=== PATIENT | female | born 1960 | race Caucasian/White ===

== ENCOUNTER 2023-05-29 15:42 | Outpatient (CLI) | payer BC ==
[~2023-05-29 15:42] MED LIST: BENA20TA82 PO; FLUT16SP11 BOTHNARES; FLUT1DIS20 INH; LEVO50TA8 PO; METO-539 PO; PANT-47 PO; TRIA1CAP88 PO; iohexol 350MG/ML 100ml bottle IV ONE
== END 2023-05-29 23:59 | disposition home or self-care (01) ==
LOC: RAD 15:42
PROVIDERS: ATTEND Nurse Practitioner
DX: I51.7 Cardiomegaly (principal); J90 Pleural effusion, not elsewhere classified
CPT/HCPCS: 71275; J3490; Q9967

== ENCOUNTER 2024-10-09 08:07 | Inpatient (IN) | payer BC ==
[~2024-10-09] VITALS: Ht 160 cm; Wt 113.6 kg
[~2024-10-09 08:07] MED LIST changes: -iohexol 350MG/ML 100ml bottle IV ONE
[2024-10-09] MEDS ORDERED: ATOR20TA66 PO (08:39)
[2024-10-09] MEDS ORDERED: GLIM2TAB6 PO (08:39)
[2024-10-09] MEDS ORDERED: DAPA10TA PO (08:39)
--- NOTE | 2024-10-09 09:07 | Physician Documentation ---
History of Present Illness Chief Complaint: Abdominal Pain Stated Complaint: ABD PAIN Time Seen by MD: 08:47 HPI Female presents to the ED with a complaint of stabbing intermittent abdominal pain since Saturday. She states that throughout her life she has had spells or attacks like this before they usually resolve after she has several bouts of diarrhea during this episode she states she has developed diarrhea along with bloody diarrhea Denies any fevers reports the pain comes in waves Day of Onset: Oct 09, 2024 Medication Reconciliation Allergies: Coded Allergies: No Known Drug Allergies (Verified Allergy, Unknown, 08/17/20) hydrocodone (Verified Adverse Reaction, Unknown, EXTREME SICK TO STOMACH, 10/09/24) Scheduled Benazepril Hcl* (Lotensin*), 20 MG PO BID, (Reported) Dapagliflozin Propanediol (Farxiga), 1 TAB PO DAILY, (Reported) Fluticasone Propionate (Fluticasone Propionate), 2 SPRAYS BOTHNARES DAILY, (Reported) Fluticasone/Salmeterol (Advair 250-50 Diskus), 1 PUFFS INH Q12H, (Reported) Glimepiride (Glimepiride), 1 TAB PO BID, (Reported) Levothyroxine Sodium (Levothyroxine Sodium), 1 TAB PO DAILY, (Reported) Metoprolol Succinate* (Toprol Xl*), 1 TAB PO DAILY, (Reported) Pantoprazole Sodium (PROTONIX tablet), 1 TAB PO BID, (Reported) Triamterene/Hydrochlorothiazid (Triamterene-Hctz 37.5-25 Mg Cp), 1 CAP PO DAILY, (Reported) Miscellaneous Medications Atorvastatin Calcium (Atorvastatin Calcium), 1 TAB PO, (Reported) Review of Systems All Other Systems at this time: Reviewed and Negative ROS As stated above in the HPI, otherwise all systems are reviewed and negative. Physical Exam Vital Signs: Temperature: 98.4, Source: Temporal, Heart Rate: 82, Respiratory Rate: 16, BP: 111/63, Pulse Oximetry: 98, Weight: 113.640 Oxygen Flow Rate: 0 Physical Exam General: Alert, no apparent distress. HEENT: PERRL, EOMI, no injection, moist mucous membranes. Respiratory: Lungs clear, no respiratory distress. Cardiovascular: Regular rate and rhythm, no murmurs. Gastrointestinal: Soft, tender to the lower epigastric region and left lower quadrant Extremities: Normal range of motion, no deformity. Neurologic: Oriented x4. Psychiatric: Normal mood and affect. Skin: Normal color, warm and dry. No edema, no ecchymosis. Progress Results/Orders Results/Orders Orders - SAMMY BENNETT INTERNAL COMBUSTION ENGINEER Urinalysis, Cult If Indicated (10/09/24 08:47) Hcg, Ur Ql (10/09/24 08:47) Cbc/Diff (10/09/24 08:47) BMP (10/09/24 08:47) Lipase (10/09/24 08:47) CMP (10/09/24 08:47) Vital Signs 10/09/24 10/09/24 10/09/24 08:14 08:32 08:36 Temp 98.4 Pulse 87 82 Resp 20 18 16 B/P (MAP) 117/70 111/63 (79) Pulse Ox 95 98 O2 Flow Rate 0 0 Departure Disposition: 09 ADMITTED INPATIENT Impression: Primary Impression: Abdominal pain Additional Impression: MELISSA (acute kidney injury) Referrals: NO PRIMARY CARE PROVIDER (PCP) Signature Scribe Signature: r Attestation: Scribed for Sammy Bennett Sales And Service Advisor by Sammy Hanna NP . 10/09/24 18:15 SAMMY BENNETT INTERNAL COMBUSTION ENGINEER Oct 09, 2024 09:07
[2024-10-09 09:32] LABS: BASOPHILS # (AUTO) 0.1 X10'3 (0-0.2); BASOPHILS % (AUTO) 0.7 % (0-1); EOSINOPHILS # (AUTO) 0.3 X10'3 (0-0.9); EOSINOPHILS % (AUTO) 1.5 % (0-6); HEMOGLOBIN 14.5 g/dl (12.0-16.0); LYMPHOCYTES # (AUTO) 1.1 X10'3 (1.1-4.8); LYMPHOCYTES % (AUTO) 6.7 % (21-51); MEAN CORPUSCULAR HEMOGLOBIN 29.9 PG (27.0-31.0); MEAN CORPUSCULAR HGB CONC 33.8 g/dL (33.0-36.5); MEAN CORPUSCULAR VOLUME 88.3 FL (78-98); MEAN PLATELET VOLUME 8.5 FL (7.4-10.4); MONOCYTES # (AUTO) 0.7 X10'3 (0-0.9); MONOCYTES % (AUTO) 4.2 % (2-12); NEUTROPHILS # (AUTO) 14.8 X10'3 (1.8-7.7); NEUTROPHILS % (AUTO) 86.9 % (42-75); PLATELET COUNT 330 X10'3 (140-440); RED BLOOD COUNT 4.87 X10'6 (4.20-5.60); WHITE BLOOD COUNT 17.1 X10'3 (4.5-11.0)
[2024-10-09 09:40] LABS: ALANINE AMINOTRANSFERASE 31 U/L (12-78); ALBUMIN 3.5 G/DL (3.4-5.0); ALBUMIN/GLOBULIN RATIO 1.2 (1.1-1.5); ALKALINE PHOSPHATASE 118 IU/L (46-116); ANION GAP 11 (8-16); ASPARTATE AMINO TRANSFERASE 19 U/L (10-37); BILIRUBIN,TOTAL 1.6 MG/DL (0.1-1.0); BLOOD UREA NITROGEN 17 MG/DL (7-18); BUN/CREATININE RATIO 12.1 (10.0-20.0); CALCIUM 8.9 MG/DL (8.5-10.1); CHLORIDE 103 MMOL/L (99-107); CREATININE 1.41 MG/DL (0.40-0.90); GLUCOSE 177 MG/DL (70-104); LIPASE 17 U/L (16-77); POTASSIUM 4.5 MMOL/L (3.5-5.1); SODIUM 140 MMOL/L (135-145); TOTAL CARBON DIOXIDE 26.4 MMOL/L (24-32); TOTAL PROTEIN 6.5 G/DL (6.4-8.2); eCRCL 34 ML/MIN; eGFR 38 ML/MIN
[2024-10-09] MEDS: normal saline 1000ML IV soln IVB ONE (09:43)
[2024-10-09] MEDS: ketorolac trometh 30MG/ML vial 30 MG/ML VIAL IM ONE (10:00)
[2024-10-09] MEDS: ondansetron/PF 4mg/2ml inj IV ONE (10:00)
[2024-10-09] MEDS ORDERED: magnesium hydroxide 30ml (MOM) UD suspension PO PRN (10:30)
[2024-10-09] MEDS ORDERED: magnesium sulf-water 4G/100mL 100 ML IV PRN (10:30)
[2024-10-09] MEDS ORDERED: potassium Cl 20 mEq SR tablet PO PRN ×2 (10:30)
[2024-10-09] MEDS ORDERED: magnesium sulf-water 2g/50mL 50 ML IV PRN (10:30)
[2024-10-09] MEDS ORDERED: potassium Cl 40MEQ/1/2NS 520ml 520 ML IV PRN (10:30)
[2024-10-09] MEDS ORDERED: dextrose 50%-water 50ml dispensing syringe IV PRN ×2 (10:30)
[2024-10-09] MEDS ORDERED: DEXTROSE 15 GM of carb/4 tabs (each vial/BOTTLE has 4 tablets) PO PRN ×2 (10:30)
[2024-10-09] MEDS ORDERED: glucagon, human recombinant 1mg kit SUBCUT PRN (10:30)
[2024-10-09] MEDS ORDERED: acetaminophen 325mg tablet PO PRN (10:30)
[2024-10-09 10:32] LABS: BILIRUBIN,URINE NEGATIVE (Neg); CLARITY,URINE SLIGHTLY CLOUDY (Clear); COLOR,URINE YELLOW (Yellow); GLUCOSE, URINE NEGATIVE (Neg); KETONES,URINE NEGATIVE (Neg); LEUKOCYTE ESTERASE ,URINE TRACE (Neg); NITRITES, URINE NEGATIVE (Neg); OCCULT BLOOD,URINE NEGATIVE (Neg); PROTEIN,URINE NEGATIVE (Neg); UROBILINOGEN,URINE 0.2 E.U/dL (0.2-1.0)
[2024-10-09 10:34] LABS: URINE HCG NEGATIVE (NEG)
[2024-10-09 10:35] LABS: UA COLLECTION TYPE NON-SPECIFIED
[2024-10-09 10:46] LABS: RBC,URINE NONE SEEN /HPF (0-2); WBC,URINE 0-4 /HPF (0-4)
[2024-10-09 10:47] LABS: BACTERIA,URINE FEW /HPF (Neg); MUCUS STRANDS NONE SEEN /LPF (Neg); SQUAMOUS EPITHELIAL CELL,UR MODERATE /LPF (FEW); TRANSITIONAL EPI CELLS,URINE FEW /HPF
--- NOTE | 2024-10-09 11:00 | RADIOLOGY REPORT ---
EXAM: CT CT ABDOMEN PELVIS HISTORY: abd pain COMPARISON: None TECHNIQUE: Helical CT images of the abdomen and pelvis were performed without IV contrast. Sagittal a nd coronal reformatted images were obtained. This CT exam was performed using 1 or more of the follow ing dose reduction techniques: Automated exposure control, adjustment of the mA and/or kv according t o patient size, or the use of iterative reconstruction techniques. Radiation Dose Information: CT Dose: CTDI volume is 36.48 mGy. Dose-length product is 1905.49 mGy*cm FINDINGS: CT abdomen: There is scarring and/or atelectasis in the lung bases. The heart is not enlarged. There is a small hiatal hernia. Multiple gallstones are present. The liver is diffusely fatty density and measures 20 cm longitudinal. The spleen measures 12 cm longitudinal. 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 The pancreas and adrenal glands are u nremarkable. No abdominal aortic aneurysm. There is a small fatty umbilical hernia. CT pelvis: No abnormal bowel dilatation, free air, or free fluid. There are descending and sigmoid co odalis diverticula without evidence of acute diverticulitis, although there is wall thickening of the di stal transverse colon, splenic flexure, and proximal descending colon. The appendix, uterus, and urin carla bladder are unremarkable. There is advanced lumbar degenerative disc disease and moderate facet arthropathy with multilevel significant neural foraminal stenosis bilaterally. There is mild osteoart hritis of the hips. IMPRESSION: 1. Cholelithiasis. 2. Hepatic steatosis, hepatomegaly, and borderline splenomegaly. 3. Right renal crossed fused ectopia. 4. Colitis involving the distal transverse colon, splenic flexure, and proximal descending colon. Ad ditionally, there are descending and sigmoid colon diverticula without evidence of acute diverticulit is. 5. Advanced lumbar degenerative disc disease with multilevel significant neural foraminal stenosis. This would be better characterized with noncontrast MRI of the lumbar spine on an outpatient basis, e specially if the patient complains of lower extremity radicular symptoms. 6. No evidence of bowel obstruction, acute appendicitis, or other acute process in the abdomen or pel vis.
[2024-10-09] MEDS: INSULIN LISPRO 100 UNIT/ML INSULN.PEN MULTI-DOSE SQ SCH (12:00)
[2024-10-09] MEDS: normal saline 1000ml 1,000 ML IV SCH (12:44)
[2024-10-09] MEDS: piperacillin/tazo 3.375gm/50ml 50 ML IV SCH (17:26)
[2024-10-09] MEDS: K and/or MAG REPLACEMENT MC SCH (19:59)
[2024-10-09] MEDS: enoxaparin 40mg/0.4ml syringe SQ SCH (20:19)
[2024-10-09] MEDS: docusate sod 100mg capsule PO SCH (20:19)
[2024-10-09 22:00] VITALS: BP 164/86; PULSE 76; RESP 16; TEMP 98.1; O2SAT 95
[2024-10-09] MEDS ORDERED: ipratropium/albuterol 3ml nebule NEB PRN (22:30)
--- NOTE | 2024-10-09 23:39 | HISTORY AND PHYSICAL ---
History & Physical Providers to CC ~ History of Present Illness Reason for Admit\Complaint: Lower abdominal pain with diarrhea and hematochezia History of Present Illness This is a 63-year-old female who has had a total of 5-6 significant episodes where she develops pain in the lower abdominal region lasting less than one day develops diarrhea and diaphoresis and the episodes resolved spontaneously the patient has a 1st episode age 14. This recent episode has been intermittent for the past four days and is more intense than previous episodes this is her 1st episode where she noticed blood in her stool mostly blood clots with some stool the patient states she has never had a colonoscopy however she was scheduled for a colonoscopy last year and unfortunately her child the patient we will need to reschedule the colonoscopy. [place] [id number] scan of the abdomen and pelvis demonstrated colitis involving the distal transverse colon, splenic flexure and proximal descending colon it is also diverticula seen in the sigmoid colon however no diverticulitis. The patient is on IV Zosyn and we will continue prednisone the patient is been on 5 mg of prednisone daily and has been tapering down since she has history of asthma and sees a clinical project leader . Allergies: Coded Allergies: No Known Drug Allergies (Verified Allergy, Unknown, 08/17/20) hydrocodone (Verified Adverse Reaction, Unknown, EXTREME SICK TO STOMACH, 10/09/24) Home Medications Home Medications Active Reported Farxiga (Dapagliflozin Propanediol) 10 Mg Tablet 1 Tab PO DAILY Atorvastatin Calcium 20 Mg Tablet 1 Tab PO Glimepiride 2 Mg Tablet 1 Tab PO BID Toprol Xl* (Metoprolol Succinate) 25 Mg Tab.sr.24h 1 Tab PO DAILY 30 Days Levothyroxine Sodium 50 Mcg Tablet 1 Tab PO DAILY 30 Days Fluticasone Propionate 16 Gm [place].susp 2 Sprays BOTHNARES DAILY PROTONIX tablet (Pantoprazole Sodium) 40 Mg Tablet.dr 1 Tab PO BID Lotensin* (Benazepril HCl) 20 Mg Tablet 20 Mg PO BID Advair 250-50 Diskus (Salmeterol Xinafoate/Fluticasone) 1 Each Disk.w.dev 1 Puffs INH Q12H Past Medical History Past Medical History Asthma is followed by a clinical project leader Dr. Ngo, iatrogenic hypothyroidism, [id number] diabetes mellitus, GERD, pleural effusions secondary to Ozempic requiring thoracentesis Past Surgical History Surgical History Comment Total shoulder arthroplasty, thoracentesis x2, thyroidectomy for benign tumor, tonsillectomy Family History Family History: FH: diabetes mellitus FATHER FH: hypertension FATHER FH: lung cancer MOTHER Past Social History Social History Comment Patient denes history of smoking/ drinking alcohol nor any illicit drug use Full Code Status ROS ROS Except for positives in the HPI the rest of the 14 point review systems is negative Exam Vitals: Vital Signs Date Time Temp Pulse Resp B/P (MAP) Pulse Ox O2 Delivery O2 Flow Rate FiO2 10/09/24 21:30 Room Air 0.0 10/09/24 19:13 78 12 165/92 (116) 94 10/09/24 08:14 98.4 General: Gen. No acute distress alert and oriented 4 Lungs clear to ascultation bilaterally, no wheezes rales or rhonchi appreciated Heart normal sinus rhythm no murmurs rubs or clicks noted Abdomen soft mild suprapubic tenderness bowel sounds are normoactive Lower extremities no clubbing cyanosis, nor edema appreciated bilaterally Diagnostic Data Last Recorded Lab Results: 10/09/24 0907 10/09/24 0907 Problems: (1) Colitis Additional Plan # colitis likely infectious- IV Zosyn Stool culture with right stain # asthma steroid dependent On 5 mg of prednisone daily I increased this to 10 mg has a stress dose # iatrogenic hypothyroidism Continue levothyroxine # GERD Continue Protonix # hypertension continue metoprolol succinate, and benazepril # [id number]-[id number] diabetes mellitus And a hyper and hypoglycemic protocol Continue Farxiga # chronic kidney disease evaluate for MELISSA with daily CMP # DVT prophylaxis Lovenox SQ I spent a total of 17 minutes on reviewing various resuscitative measures/ ACP with the patient at the time of admission. The patient has decided on full code status Date of Service: Oct 09, 2024 Billing Provider: BRE ORTIZ DO Common Visit Codes: [id number] INP/OBS CARE (HIGH) Secondary Visit Codes: 37246-[id number] CARE PLAN 30 MINUTES BRE ORTIZ DO Oct 09, 2024 23:39
[2024-10-10] VITALS (8 sets, daily range): BP systolic 137–166; BP diastolic 71–86; PULSE 67–82; RESP 16–18; TEMP 97.5–98; O2SAT 93–99
[2024-10-10 05:28] LABS: BASOPHILS # (AUTO) 0.1 X10'3 (0-0.2); BASOPHILS % (AUTO) 0.8 % (0-1); EOSINOPHILS # (AUTO) 1.2 X10'3 (0-0.9); EOSINOPHILS % (AUTO) 8.7 % (0-6); HEMATOCRIT 38.4 % (35.0-45.0); HEMOGLOBIN 12.8 g/dl (12.0-16.0); LYMPHOCYTES # (AUTO) 2.7 X10'3 (1.1-4.8); LYMPHOCYTES % (AUTO) 18.6 % (21-51); MEAN CORPUSCULAR HEMOGLOBIN 29.8 PG (27.0-31.0); MEAN CORPUSCULAR HGB CONC 33.3 g/dL (33.0-36.5); MEAN CORPUSCULAR VOLUME 89.4 FL (78-98); MEAN PLATELET VOLUME 8.4 FL (7.4-10.4); MONOCYTES # (AUTO) 0.9 X10'3 (0-0.9); MONOCYTES % (AUTO) 6.2 % (2-12); NEUTROPHILS # (AUTO) 9.5 X10'3 (1.8-7.7); NEUTROPHILS % (AUTO) 65.7 % (42-75); PLATELET COUNT 297 X10'3 (140-440); RED CELL DISTRIBUTION WIDTH 13.5 % (11.5-14.5); WHITE BLOOD COUNT 14.4 X10'3 (4.5-11.0)
[2024-10-10 05:41] LABS: ALBUMIN 2.7 G/DL (3.4-5.0); ALBUMIN/GLOBULIN RATIO 0.9 (1.1-1.5); ALKALINE PHOSPHATASE 87 IU/L (46-116); ANION GAP 5 (8-16); ASPARTATE AMINO TRANSFERASE 15 U/L (10-37); BLOOD UREA NITROGEN 16 MG/DL (7-18); BUN/CREATININE RATIO 11.3 (10.0-20.0); CALCIUM 8.4 MG/DL (8.5-10.1); CHLORIDE 110 MMOL/L (99-107); CREATININE 1.41 MG/DL (0.40-0.90); GLUCOSE 116 MG/DL (70-104); MAGNESIUM 2.2 MG/DL (1.5-2.4); POTASSIUM 3.9 MMOL/L (3.5-5.1); SODIUM 143 MMOL/L (135-145); TOTAL CARBON DIOXIDE 28.5 MMOL/L (24-32); TOTAL PROTEIN 5.8 G/DL (6.4-8.2); eCRCL 34 ML/MIN; eGFR 38 ML/MIN
[2024-10-10 05:44] LABS: ALANINE AMINOTRANSFERASE 21 U/L (12-78)
[2024-10-10] MEDS: SALMETEROL IH SCH (08:00)
[2024-10-10] MEDS: FLUTICASONE IH SCH (08:00)
[2024-10-10] MEDS ORDERED: DAPAGLIFLOZIN 10MG TABLET PO SCH (08:00)
[2024-10-10] MEDS: fluticasone nasal spray 16GM bottle NS SCH (08:32)
[2024-10-10] MEDS: levoTHYROXINE 25mcg tablet PO SCH (08:32)
[2024-10-10] MEDS: pantoprazole 40mg Tablet.DR PO SCH (08:33)
[2024-10-10] MEDS: metoprolol succinate 25mg (24-HOUR) SR. Tablet PO SCH (08:33)
[2024-10-10] MEDS: lisinopril 20mg tablet PO SCH (08:33)
[2024-10-10] MEDS: predniSONE 5mg tablet PO SCH (08:33)
[2024-10-10] MEDS: mag hydrox/Alum hydrox/simeth 30ml oral suspension PO PRN (17:50)
--- NOTE | 2024-10-10 20:39 | PROGRESS NOTE ---
Daily Progress Note Providers to CC ~ Antibiotic Timeout Antibiotic Ordered?: Yes Subjective The patient states that her abdominal pain is improved significantly however she is experiencing a lot of gas she feels that the increase in the prednisone to 10 mg a day is helping the patient was wanting to be discharged I informed her I discharge her in the a.m. Objective Vital Signs Date Time Temp Pulse Resp B/P (MAP) Pulse Ox O2 Delivery O2 Flow Rate FiO2 10/10/24 15:44 70 18 97 Room Air* 0 21 10/10/24 10:00 97.9 141/71 (94) Result Diagram: 10/10/2442710/10/24427 Gen. No acute distress alert and oriented 4 Lungs clear to ascultation bilaterally, no wheezes rales or rhonchi appreciated Heart normal sinus rhythm no murmurs rubs or clicks noted Abdomen soft mild suprapubic tenderness bowel sounds are normoactive Lower extremities no clubbing cyanosis, nor edema appreciated bilaterally Problem\Assessment\Plan Problems/Diagnosis: (1) Colitis # colitis likely infectious- IV Zosyn Stool culture with moy stain are negative White blood cell count is downtrending # asthma steroid dependent On 5 mg of prednisone daily I increased this to 10 mg has a stress dose # iatrogenic hypothyroidism Continue levothyroxine # GERD Continue Protonix # hypertension continue metoprolol succinate, and benazepril # [id number] diabetes mellitus And a hyper and hypoglycemic protocol Continue Farxiga # chronic kidney disease evaluate for MELISSA with daily CMP # DVT prophylaxis Lovenox SQ Disposition anticipate discharge in the a.m. Date of Service: Oct 10, 2024 Billing Provider: BRE ORTIZ DO Common Visit Codes: [id number] INP/OBS CARE(HIGH) BRE ORTIZ DO Oct 10, 2024 20:39
[2024-10-10] MEDS ORDERED: SACC250C PO (20:43)
[2024-10-10] MEDS ORDERED: AMOX-117 PO (20:43)
[2024-10-10] MEDS: simethicone 80mg chew tab PO SCH (20:47)
[2024-10-11] MEDS: ketorolac trometh 15mg/ml vial 15 MG/ML ML IV ONE (02:18)
[2024-10-11] MEDS: ondansetron/PF 4mg/2ml inj IV PRN (04:20)
[2024-10-11 06:00] VITALS: BP 177/97; PULSE 79; RESP 16; TEMP 97.3; O2SAT 95
[2024-10-11 06:30] LABS: BASOPHILS # (AUTO) 0.1 X10'3 (0-0.2); BASOPHILS % (AUTO) 1.2 % (0-1); EOSINOPHILS # (AUTO) 1.1 X10'3 (0-0.9); EOSINOPHILS % (AUTO) 9.8 % (0-6); HEMATOCRIT 40.8 % (35.0-45.0); HEMOGLOBIN 13.7 g/dl (12.0-16.0); LYMPHOCYTES # (AUTO) 2.8 X10'3 (1.1-4.8); LYMPHOCYTES % (AUTO) 24.9 % (21-51); MEAN CORPUSCULAR HEMOGLOBIN 29.9 PG (27.0-31.0); MEAN CORPUSCULAR HGB CONC 33.5 g/dL (33.0-36.5); MEAN CORPUSCULAR VOLUME 89.3 FL (78-98); MEAN PLATELET VOLUME 8.7 FL (7.4-10.4); MONOCYTES # (AUTO) 0.6 X10'3 (0-0.9); MONOCYTES % (AUTO) 5.7 % (2-12); NEUTROPHILS # (AUTO) 6.5 X10'3 (1.8-7.7); NEUTROPHILS % (AUTO) 58.4 % (42-75); PLATELET COUNT 347 X10'3 (140-440); RED BLOOD COUNT 4.57 X10'6 (4.20-5.60); RED CELL DISTRIBUTION WIDTH 13.5 % (11.5-14.5); WHITE BLOOD COUNT 11.1 X10'3 (4.5-11.0)
[2024-10-11 07:28] LABS: ALANINE AMINOTRANSFERASE 27 U/L (12-78); ALBUMIN 3.1 G/DL (3.4-5.0); ALBUMIN/GLOBULIN RATIO 0.9 (1.1-1.5); ALKALINE PHOSPHATASE 113 IU/L (46-116); ANION GAP 10 (8-16); ASPARTATE AMINO TRANSFERASE 24 U/L (10-37); BLOOD UREA NITROGEN 13 MG/DL (7-18); BUN/CREATININE RATIO 9.6 (10.0-20.0); CALCIUM 8.4 MG/DL (8.5-10.1); CHLORIDE 107 MMOL/L (99-107); CREATININE 1.36 MG/DL (0.40-0.90); GLUCOSE 125 MG/DL (70-104); POTASSIUM 3.8 MMOL/L (3.5-5.1); SODIUM 141 MMOL/L (135-145); TOTAL CARBON DIOXIDE 23.8 MMOL/L (24-32); TOTAL PROTEIN 6.7 G/DL (6.4-8.2); eCRCL 35 ML/MIN; eGFR 39 ML/MIN
[2024-10-11 08:00] VITALS: RESP 18; O2SAT 96
[2024-10-11] MEDS: DAPAGLIFLOZIN 10MG TABLET PO SCH (08:00)
[2024-10-11 11:00] VITALS: BP 136/66; PULSE 89; RESP 19; TEMP 97.4; O2SAT 97
[2024-10-11] MEDS ORDERED: PRED10TA PO (11:09)
--- NOTE | 2024-10-11 20:31 | DISCHARGE SUMMARY ---
Discharge Summary Providers to CC ~ Discharge Summary Admission Diagnosis: Lower abdominal pain-eval for appendicitis/diverticulitis Hospital Course DATE OF ADMISSION: 10/09/2024 DATE OF DISCHARGE: 10/11/2024 Discharge Diagnosis\Comment: Colitis likely infectious versus inflammatory, asthma steroid dependentm iatrogenic hypothyroidism, GERD, chronic kidney disease, [id number] diabetes mellitus Operations\Procedures: None Consultants: None Complications: None Condition on DC: Stable New Medications: Amox Tr/Potassium Clavulanate (Augmentin 875-125 Tablet) 1 Each Tablet 1 TAB PO Q12H for 10 Days, #20 TAB Prednisone (Prednisone) 10 Mg Tablet 1 TAB PO DAILY, #15 TAB Saccharomyces Boulardii (Florastor) 250 Mg Capsule 1 CAP PO Q12H for loose stool for 30 Days, #60 CAP 0 Refills Continued Medications: Atorvastatin Calcium (Atorvastatin Calcium) 20 Mg Tablet 1 TAB PO Benazepril Hcl* (Lotensin*) 20 Mg Tablet 20 MG PO BID, TAB Dapagliflozin Propanediol (Farxiga) 10 Mg Tablet 1 TAB PO DAILY Fluticasone Propionate (Fluticasone Propionate) 16 Gm [place].susp 2 SPRAYS BOTHNARES DAILY, 0 Refills Fluticasone/Salmeterol (Advair 250-50 Diskus) 1 Each Disk.w.dev 1 PUFFS INH Q12H, INHALER 0 Refills Glimepiride (Glimepiride) 2 Mg Tablet 1 TAB PO BID Levothyroxine Sodium (Levothyroxine Sodium) 50 Mcg Tablet 1 TAB PO DAILY for 30 Days, #30 TAB Metoprolol Succinate* (Toprol Xl*) 25 Mg Tab.sr.24h 1 TAB PO DAILY for 30 Days, #30 TAB Pantoprazole Sodium (PROTONIX tablet) 40 Mg Tablet.dr 1 TAB PO BID, TAB Discharge Summary: I admitted the patient with the following HPI: This is a 63-year-old female who has had a total of 5-6 significant episodes where she develops pain in the lower abdominal region lasting less than one day develops diarrhea and diaphoresis and the episodes resolved spontaneously the patient has a 1st episode age 14. This recent episode has been intermittent for the past four days and is more intense than previous episodes this is her 1st episode where she noticed blood in her stool mostly blood clots with some stool the patient states she has never had a colonoscopy however she was scheduled for a colonoscopy last year and unfortunately her child the patient we will need to reschedule the colonoscopy. [place] [id number] scan of the abdomen and pelvis demonstrated colitis involving the distal transverse colon, splenic flexure and proximal descending colon it is also diverticula seen in the sigmoid colon however no diverticulitis. The patient is on IV Zosyn and we will continue prednisone the patient is been on 5 mg of prednisone daily and has been tapering down since she has history of asthma and sees a net developer architect . The patient felt better on the and felt that possibly the increasing the steroids were helping her symptoms and the diet was advanced from a clear liquid diet to a pureed diet when the patient advanced her diet however her symptoms worsened the [place] [id number] on the day of the and the patient did feel well enough that she can be go home in this be discharged however the patient is going to stay on a clear liquid diet for a couple of days I did discharge the patient with a script for prednisone 10 mg daily as she is going to increase her prednisone dose for one-week she takes 5 mg daily at home. The patient did receive a 10 day course of Augmentin for discharge and recommended to buy an fgrc-[id number]-bgxksyw probiotic. Patient has well-controlled diabetes mellitus hemoglobin A1c is 7.0 and was on the hyper and hypoglycemic protocol during hospitalization her blood glucose was controlled during hospitalization Patient has chronic kidney disease or creatinine was 1.41 on admission and slightly improved on day discharge 1.36. Gen. No acute distress alert and oriented 4 Lungs clear to ascultation bilaterally, no wheezes rales or rhonchi appreciated Heart normal sinus rhythm no murmurs rubs or clicks noted Abdomen soft mild generalized tenderness bowel sounds are normoactive Lower extremities no clubbing cyanosis, nor edema appreciated bilaterally The patient felt ready to be discharged and was medically cleared to be discharged on 10/11/2024 with strong recommendations to get a follow up colonoscopy in outpatient setting as the patient very well could have inflammatory bowel disease in chronically taking steroids may be helping mitigate some of the symptoms and lessen the otherwise more severe symptoms during an decompensated episode. The patient was seen and evaluated on day of discharge. Time spent on discharge 40 minutes *Problems/Diagnosis: (1) Colitis Total Time Spent on D/C: > 30 Minutes Date of Service: Oct 11, 2024 Billing Provider: BRE ORTIZ DO Common Visit Codes: 26374-IOD/OBS DISCH DAY >30min BRE ORTIZ DO Oct 11, 2024 20:31
== END 2024-10-11 12:05 | disposition home or self-care (01) | DRG 392 ==
LOC: ER 08:07 → ED HOLD 10:38 → ORTHO 4S 21:19
PROVIDERS: ADMIT Family Medicine; ATTEND Family Medicine
DX: A09 Infectious gastroenteritis and colitis, unspecified (principal); N17.9 Acute kidney failure, unspecified; E03.2 Hypothyroidism due to medicaments and other exogenous substances; E11.22 Type 2 diabetes mellitus with diabetic chronic kidney disease; I12.9 Hypertensive chronic kidney disease with stage 1 through stage 4 chronic kidney disease, or unspecified chronic kidney disease; J45.909 Unspecified asthma, uncomplicated; K21.9 Gastro-esophageal reflux disease without esophagitis; K57.30 Diverticulosis of large intestine without perforation or abscess without bleeding; N18.9 Chronic kidney disease, unspecified; Z79.51 Long term (current) use of inhaled steroids; Z79.899 Other long term (current) drug therapy; Z79.52 Long term (current) use of systemic steroids; Z79.84 Long term (current) use of oral hypoglycemic drugs; Z80.1 Family history of malignant neoplasm of trachea, bronchus and lung; Z82.49 Family history of ischemic heart disease and other diseases of the circulatory system; Z83.3 Family history of diabetes mellitus; Z87.891 Personal history of nicotine dependence
CPT/HCPCS: 36415; 74176; 80053; 81001; 81025; 82948; 83036; 83605; 83690; 83735; 85025; 87040; 87045; 87046; 87081; 87088; 89055; 94760; 96361; 96372; 96374; 99285; G0378; J1650; J1815; J1885; J2405; J2543; J7030; J7512